=== PATIENT | female | born 1955 | race Two or more races ===

== ENCOUNTER 2019-05-26 10:28 | Emergency (ER) | payer OTHER ==
[~2019-05-26] VITALS: Ht 172.7 cm; Wt 62.6 kg
[~2019-05-26 10:28] MED LIST: TARKA 4/2401 BOTTLE PO
[2019-05-26] MEDS ORDERED: TOPROL XL50 M1 (10:35)
[2019-05-26] MEDS ORDERED: COZAAR100 MG (10:35)
[2019-05-26] MEDS ORDERED: LEVOTHYROXINE25 MCG (10:36)
[2019-05-26] MEDS ORDERED: ZETIA10 MG (10:36)
== END 2019-05-26 13:22 | disposition home or self-care (01) ==
LOC: ER 10:28 → CPU-OBS 11:32 → ER 13:22
DX: M94.0 Chondrocostal junction syndrome [Tietze] (principal); R07.89 Other chest pain

== ENCOUNTER 2019-06-24 12:20 | Emergency (ER) | payer OTHER ==
[~2019-06-24] VITALS: Ht 154.9 cm; Wt 62.1 kg
[~2019-06-24 12:20] MED LIST changes: +COZAAR100 MG; +LEVOTHYROXINE25 MCG; +TOPROL XL50 M1; +ZETIA10 MG
[2019-06-24] MEDS ORDERED: NABUMETONE500 MG PO (14:57)
[2019-06-24] MEDS ORDERED: NORFLEX100MG PO (14:57)
== END 2019-06-24 15:01 | disposition home or self-care (01) ==
LOC: ER 12:20
DX: M54.5 Low back pain (principal)

== ENCOUNTER 2019-07-04 14:07 | Emergency (ER) | payer OTHER ==
[~2019-07-04] VITALS: Ht 154.9 cm; Wt 60.8 kg
[~2019-07-04 14:07] MED LIST changes: +NABUMETONE500 MG PO; +NORFLEX100MG PO
== END 2019-07-04 20:15 | disposition home or self-care (01) ==
LOC: ER 14:07 → CPU-OBS 14:08 → ER 20:15
DX: M94.0 Chondrocostal junction syndrome [Tietze] (principal); R07.89 Other chest pain

== ENCOUNTER 2021-08-10 07:15 | Outpatient (CLI) | payer OTHER | END 2021-08-10 07:16 | disposition home or self-care (01) | LOC: NUCLEAR 07:15 | PROVIDERS: ATTEND General Practice | DX: E04.2 Nontoxic multinodular goiter (principal); E03.8 Other specified hypothyroidism; E78.2 Mixed hyperlipidemia; I11.9 Hypertensive heart disease without heart failure; E21.1 Secondary hyperparathyroidism, not elsewhere classified; E55.9 Vitamin D deficiency, unspecified; E56.8 Deficiency of other vitamins; N20.0 Calculus of kidney ==

== ENCOUNTER 2023-08-23 07:06 | Outpatient (CLI) | payer OTHER | END 2023-08-23 07:08 | disposition home or self-care (01) | LOC: NUCLEAR 07:06 | PROVIDERS: ATTEND Internal Medicine Gastroenterology | DX: K80.20 Calculus of gallbladder without cholecystitis without obstruction (principal) | CPT/HCPCS: 78227; A9537 ==

== ENCOUNTER 2024-06-07 08:01 | Emergency (ER) | payer OTHER ==
[~2024-06-07] VITALS: Ht 165.1 cm; Wt 76.2 kg
[2024-06-07 08:53] LABS: HEMATOCRIT 44.3 % (36.0-45.00); HEMOGLOBIN 15.2 g/dL (12.0-15.00); MEAN CELL VOLUME 91.6 fL (80.00-100.00); MEAN CORPUSCULAR HEMOGLOBIN 31.5 pg (27.00-32.0); MEAN CORPUSCULAR HGB CONC 34.4 g/dl (32.0-36.0); PLATELET COUNT 216 K/uL (150-450); RED BLOOD COUNT 4.83 M/uL (4.00-6.00); RED CELL DISTRIBUTION WIDTH 14.6 % (11.5-14.5)
[2024-06-07 09:19] LABS: URINE APPEARANCE Clear; URINE BILIRRUBIN Negative (NEGATIVE); URINE BLOOD Negative; URINE COLOR Yellow; URINE GLUCOSE Negative (NEGATIVE); URINE KETONE Negative (NEGATIVE); URINE LEUKOCYTE Negative; URINE NITRATE Negative; URINE PROTEIN Negative (NEGATIVE); URINE UROBILINOGEN 0.2 E.U./dl
[2024-06-07 09:23] LABS: URINE EPITHELIAL CELLS 2.2 uL (0.0-38.8); URINE RBC 2.2 uL (0.0-20.8)
[2024-06-07 09:25] LABS: URINE BACTERIA 1.2 uL (0.0-1933); URINE WBC 1.5 uL (0.0-23.2)
== END 2024-06-07 12:46 | disposition home or self-care (01) ==
LOC: ER 08:03
PROVIDERS: Emergency Medicine
DX: R10.9 Unspecified abdominal pain (principal); I10 Essential (primary) hypertension; E03.8 Other specified hypothyroidism

== ENCOUNTER → 2025-05-26 | Emergency (ER) | payer OTHER ==
[~2025-05-26] VITALS: Ht 154.9 cm; Wt 63.5 kg
[~2025-05-26] MED LIST changes: +DICY20TA PO; +FAMOTIDINE/PF 20 MG/2 ML VIAL ONE; +FAMOtidine 10 MG/ML (4ML VIAL) IV PUSH ONE; +HYOSCYAMINE SULFATE 0.125 MG TAB.SUBL ONE; +HYOSCYAMINE SULFATE 0.125 MG TAB.SUBL SL ONE; +ONDANSETRON HCL 2 MG/ML VIAL IM ONE; +ONDANSETRON HCL 2 MG/ML VIAL ONE; +PROTONIX40 MG PO
== END | disposition home or self-care (01) ==
LOC: ER 09:35
DX: K29.70 Gastritis, unspecified, without bleeding (principal); I10 Essential (primary) hypertension
CPT/HCPCS: 96365; 96372; 99282; J2405; J3490